=== PATIENT | female | born 1985 | race Caucasian/White ===

== ENCOUNTER 2020-06-10 21:49 | Emergency (ER) | payer OTHER ==
[~2020-06-10] VITALS: Ht 165.1 cm; Wt 109.8 kg
[2020-06-10] MEDS ORDERED: NS IV 1000 ML 1,000 ML IV STA (21:57)
[2020-06-10] MEDS ORDERED: KETOROLAC 60 MG/2 ML VIAL IV ONE (22:00)
[2020-06-10] MEDS ORDERED: ONDANSETRON 4 MG/2 ML (SDV) Z0FRAN IVP ONE (22:00)
--- NOTE | 2020-06-10 22:03 | ED Abdominal Pain ---
General Chief Complaint: Abdominal/GI Problems Stated Complaint: ABD PAIN Source of Information: Patient, RN/MD Exam Limitations: No Limitations History of Present Illness Date Seen by Provider: Jun 10, 2020 Time Seen by Provider: 21:50 Initial Comments This patient is a 35-year-old female presents to the emergency department complaining of epigastric discomfort. Patient states she feels nauseated but no vomiting. Patient states she started had her gallbladder out. Limited medical evaluation treat as needed Timing/Duration: 1 Day Severity/Quality: Moderate Location: Epigastric Radiation: No Radiation Activities at Onset: None Associated Symptoms: No Denies Symptoms, No Back Pain, No Chest Pain, No Diaphoresis, No Fever/Chills, No Fatigue, No Headache, No Heartburn; Nausea/Vomiting (nausea no vomiting); No Rash, No Shortness of Air, No Swelling/Mass in Abdomen, No Syncope, No Weakness, No Other Allergies and Home Medications Allergies Coded Allergies: No Known Drug Allergies (Unverified , 06/10/20) Patient Home Medication List Home Medication List Reviewed: Yes Review of Systems Review of Systems Constitutional: No no symptoms reported, No see HPI, No chills, No diaphoresis, No dizziness, No fever, No malaise, No weakness, No weight gain, No weight loss, No other EENTM: No No Symptoms Reported, No See HPI, No Blurred Vision, No Double Vision, No Eye Pain, No Eye Tearing, No Ear Drainage, No Ear Pain, No Mouth Pain, No Mouth Swelling, No Nose Congestion, No Nose Pain, No Throat Pain, No Throat Swelling, No Other Respiratory: Denies No Symptoms Reported, Denies See HPI, Denies Cough, Denies Orthopnea, Denies Shortness of Air, Denies SOA With Exertion, Denies SOA at Re st, Denies Stridor, Denies Wheezing, Denies Other Cardiovascular: Denies No Symptoms Reported, Denies See HPI, Denies Chest Pain, Denies Edema, Denies Irregular Heart Rate, Denies Lightheadedness, Denies Palpitations, Denies Syncope, Denies Other Gastrointestinal: Denies No Symptoms Reported; See HPI; Denies Abdomen Distended; Abdominal Pain; Denies Blood Streaked Stools, Denies Constipated, Denies Diarrhea, Denies Difficulty Swallowing; Nausea; Denies Poor Appetite, Denies Poor Fluid Intake, Denies Rectal Bleeding, Denies Vomiting, Denies Other Genitourinary: Denies No Symptoms Reported, Denies See HPI, Denies Burning, Denies Discharge, Denies Drainage, Denies Frequency, Denies Flank Pain, Denies Hematuria, Denies Incontinence, Denies Pain, Denies Urgency, Denies Other Musculoskeletal: No no symptoms reported, No see HPI, No back pain, No gout, No joint pain, No joint swelling, No muscle pain, No muscle stiffness, No muscle cramps, No muscle twitching, No muscle weakness, No neck pain, No other Skin: No no symptoms reported, No see HPI, No change in color, No change in hair/nails, No dryness, No hx of skin cancer, No lesions, No lumps, No pruritus, No rash, No other Psychiatric/Neurological: Denies No Symptoms Reported, Denies See HPI, Denies Anxiety, Denies Depressed, Denies Emotional Problems, Denies Headache, Denies Numbness, Denies Paresthesia, Denies Pre-Existing Deficit, Denies Seizure, Denies Tingling, Denies Tremors, Denies Weakness, Denies Other Endocrine: Denies No Symptoms Reported, Denies See HPI, Denies Excessive Sweating, Denies Flushing, Denies Intolerance to Cold, Denies Intolerance to Heat, Denies Increased Hunger, Denies Increased Thrist, Denies Increased Urine, Denies Unexplained Weight Gain, Denies Unexplaned Weight Loss, Denies Other All Other Systems Reviewed Negative Unless Noted: Yes Past Vajtbid-Ftegju-Gklfws Hx Patient Social History Recent Foreign Travel: No Contact w/Someone Who Travel: No Physical Exam Vital Signs Vital Signs - First Documented 06/10/20 22:00 Temp 36.1 Pulse 82 Resp 18 B/P (MAP) 161/105 (123) O2 Delivery Room Air Capillary Refill : Height/Weight/BMI Height: '" Weight: lbs. oz. kg; BMI Method: General Appearance: WD/WN, no apparent distress Respiratory: chest non-tender, lungs clear, normal breath sounds, no respiratory distress, no accessory muscle use Cardiovascular: normal peripheral pulses, regular rate, rhythm, no edema, no gallop, no JVD, no murmur Gastrointestinal: normal bowel sounds, non tender, soft, no organomegaly, no pulsatile mass Extremities: normal range of motion, non-tender, normal inspection, no pedal edema, no calf tenderness, normal capillary refill, pelvis stable Back: normal inspection, no CVA tenderness, no vertebral tenderness Pelvic: normal external exam, normal adnexa, no cerv. motion tender, no masses, discharge Progress/Results/Core Measures Results/Orders Lab Results Laboratory Tests Test 06/10/20 22:13 06/10/20 22:20 Range/Units Urine Color YELLOW Urine Clarity CLEAR Urine pH 7.5 5-9 Urine Specific [place] 1.010 L 1.016-1.022 Urine Protein NEGATIVE NEGATIVE Urine Glucose (UA) NEGATIVE NEGATIVE Urine Ketones NEGATIVE NEGATIVE Urine Nitrite NEGATIVE NEGATIVE Urine Bilirubin NEGATIVE NEGATIVE Urine Urobilinogen 0.2 < = 1.0 MG/DL Urine Leukocyte Esterase NEGATIVE NEGATIVE Urine RBC (Auto) NEGATIVE NEGATIVE Urine RBC NONE /HPF Urine WBC RARE /HPF Urine Squamous Epithelial Cells 0-2 /HPF Urine Crystals NONE /LPF Urine Bacteria TRACE /HPF Urine Casts NONE /LPF Urine Mucus NEGATIVE /LPF Urine Culture Indicated NO White Blood Count 12.4 H 4.3-11.0 10^3/uL Red Blood Count 4.98 4.35-5.85 10^6/uL Hemoglobin 15.4 11.5-16.0 G/DL Hematocrit 45 35-52 % Mean Corpuscular Volume 91 80-99 FL Mean Corpuscular Hemoglobin 31 25-34 PG Mean Corpuscular Hemoglobin Concent 34 32-36 G/DL Red Cell Distribution Width 12.5 10.0-14.5 % Platelet Count 296 130-400 10^3/uL Mean Platelet Volume 10.7 H 7.4-10.4 FL Neutrophils (%) (Auto) 48 42-75 % Lymphocytes (%) (Auto) 42 12-44 % Monocytes (%) (Auto) 5 0-12 % Eosinophils (%) (Auto) 4 0-10 % Basophils (%) (Auto) 1 0-10 % Neutrophils # (Auto) 6.0 1.8-7.8 X 10^3 Lymphocytes # (Auto) 5.2 H 1.0-4.0 X 10^3 Monocytes # (Auto) 0.6 0.0-1.0 X 10^3 Eosinophils # (Auto) 0.5 H 0.0-0.3 10^3/uL Basophils # (Auto) 0.1 0.0-0.1 10^3/uL Neutrophils % (Manual) 48 % Lymphocytes % (Manual) 39 % Monocytes % (Manual) 6 % Eosinophils % (Manual) 1 % Basophils % (Manual) 0 % Band Neutrophils 1 % Atypical Lymphocytes 4 % Sodium Level 140 135-145 MMOL/L Potassium Level 4.0 3.6-5.0 MMOL/L Chloride Level 104 98-107 MMOL/L Carbon Dioxide Level 24 21-32 MMOL/L Anion Gap 12 5-14 MMOL/L Blood Urea Nitrogen 10 7-18 MG/DL Creatinine 0.56 L 0.60-1.30 MG/DL Estimat Glomerular Filtration Rate > 60 BUN/Creatinine Ratio 18 Glucose Level 91 70-105 MG/DL Calcium Level 9.0 8.5-10.1 MG/DL Corrected Calcium 8.8 8.5-10.1 MG/DL Total Bilirubin 0.3 0.1-1.0 MG/DL Aspartate Amino Transf (AST/SGOT) 17 5-34 U/L Alanine Aminotransferase (ALT/SGPT) 26 0-55 U/L Alkaline Phosphatase 68 40-136 U/L Total Protein 7.0 6.4-8.2 GM/DL Albumin 4.2 3.2-4.5 GM/DL Lipase 36 8-78 U/L My Orders Orders - ABBI BALES MD Lipase (06/10/20 21:57) Ed Iv/Invasive Line Start (06/10/20 21:57) Comprehensive Metabolic Panel (06/10/20 21:57) Cbc With Automated Diff (06/10/20 21:57) Urinalysis (06/10/20 21:57) Abdomen Flat & Upright/Decub (06/10/20 21:57) Ketorolac Injection (Toradol Injection) (06/10/20 22:00) Ns Iv 1000 Ml (Sodium Chloride 0.9%) (06/10/20 21:57) Ondansetron Injection (Zofran Injectio (06/10/20 22:00) Urine Bedside (06/10/20 22:17) Manual Differential (06/10/20 22:20) Medications Given in ED Current Medications Medications Dose Ordered Sig/Lauro Route Start Time Stop Time Status Last Admin Dose Admin Ketorolac Tromethamine 15 mg ONCE ONCE IV 06/10/20 22:00 06/10/20 22:03 DC 06/10/20 22:23 15 MG Ondansetron HCl 4 mg ONCE ONCE IVP 06/10/20 22:00 06/10/20 22:03 DC 06/10/20 22:23 4 MG Vital Signs/I&O 06/10/20 22:00 Temp 36.1 Pulse 82 Resp 18 B/P (MAP) 161/105 (123) O2 Delivery Room Air Progress Progress Note : Time: 23:02 Progress Note Negative evaluation in the emergency department. X-rays do show constipation and nonspecific bowel gas. Encourage by mouth fluids. Advance diet slowly. Bentyl as needed for abdominal pain. Patient should use zgzp-tvj-tqbuyiz MiraLAX. May also Geremias Brown Cow by mixing 4 ounces of prune juice with 2 ounces of milk of magnesia. And 1 tablespoon salt better. Serve warm. Departure Impression Primary Impression: Abdominal pain Additional Impression: Constipation Disposition: HOME, SELF-CARE Condition: Stable Departure-Patient Inst. Decision time for Depature: 23:04 Referrals: NO,LOCAL PHYSICIAN (PCP) Primary Care Physician Patient Instructions: Constipation, Adult (DC), Severe Abdominal Pain, Adult (DC) Add. Discharge Instructions: Encourage by mouth fluids. Advance diet slowly. Bentyl as needed for abdominal pain. Patient should use mvwn-zpv-obbupej MiraLAX. May also Geremias Brown Cow by mixing 4 ounces of prune juice with 2 ounces of milk of magnesia. And 1 tablespoon salt better. Serve warm. All discharge instructions reviewed with patient and/or family. Voiced understanding. Scripts Ondansetron (Ondansetron Odt) 4 Mg Tab.rapdis 4 MG PO BID, #10 TAB 0 Refills Prov: ABBI BALES MD 06/10/20 Dicyclomine HCl (Dicyclomine HCl) 20 Mg Tablet 20 MG PO BID, #10 TAB 0 Refills Prov: ABBI BALES MD 06/10/20 ABBI BALES MD Jun 10, 2020 22:03
--- OUTSIDE RECORDS SUMMARY | 2020-06-10 22:25 | XMS REPORT ---
Author Author Kimmy CISSE Organization [facility] Address [address] [place] [address] Care Team Providers Care Livestock Trucker Name Role Phone TANNAMICKYA Unavailable PROBLEMS Unknown Problems ALLERGIES No Known Allergies ENCOUNTERS Encounter Location Date Diagnosis [facility] [address] [facility] [id number] [address] [place] [address] [id number] Aug, Caries K02.9 [facility] [address] [id number] [address] [place] [address] [id number] Jul, Caries K02.9 [facility] [address] [facility] [id number] [address] [place] [address] [id number] Jul, Caries K02.9 ; Dental examin ation Z01.20 ; Dental plaque K03.6 and Encounter for prophylactic administration of fluoride Z29.3 IMMUNIZATIONS No Known Immunizations SOCIAL HISTORY Never Assessed REASON FOR VISIT Establish Care PLAN OF CARE Activity Details Follow Up JUNAID Reason:Surgical #4/5 VITAL SIGNS Blood pressure systolic 158 mmHg 2018-08-23 Blood pressure diastolic 99 mmHg 2018-08-23 MEDICATIONS Unknown Medications RESULTS No Results PROCEDURES Procedure Date Ordered Result Body Site TOPICAL FLUORIDE VARNISH Aug 23, 2018 COMP ORAL EVALUATION - NEW/EST PT Aug 23, 2018 INTRAORL-PERIAPICAL 1 FILM [id number] Aug 23, 2018 PANORAMIC FILM SEE ALSO CODE [id number] Aug 23, 2018 BITEWINGS - FOUR FILMS Aug 23, 2018 PROPHYLAXIS - ADULT Aug 23, 2018 INTRAORL-PERIAPICAL EA ADD FILM Aug 23, 2018 INTRAORL-PERIAPICAL EA ADD FILM Aug 23, 2018 INTRAORL-PERIAPICAL EA ADD FILM Aug 23, 2018 INTRAORL-PERIAPICAL EA ADD FILM Aug 23, 2018 INSTRUCTIONS MEDICATIONS ADMINISTERED No Known Medications MEDICAL (GENERAL) HISTORY Type Description Date Surgical History Gall Bladder Removed 09/2016 Surgical History [place] teeth 2000
--- OUTSIDE RECORDS SUMMARY | 2020-06-10 22:25 | XMS REPORT | Continuity of Care Document ---
Author Organization Unknown Address Unknown Phone Unavailable Allergies Active Description Code Type Severity Reaction Onset Reported/Identified Relationship to Patient Clinical Status Yes No Known Drug Allergies [id number] Drug Allergy Unknown N/A 06/10/2020 Medications There is no data. Problems There is no data. Procedures There is no data. Results There is no data. Encounters ACCT No. Visit Date/Time Discharge Status Pt. Type Provider Facility Loc./Unit Complaint [id number] 10/31/2019 17:20:00 10/31/2019 23:59: 59 CLS Outpatient [facility] [id number] 06/10/2020 21:51:[address] Emergency AMAIR[facility]RAEL, ABBI Garcia [facility] ER FS ABD PAIN
--- OUTSIDE RECORDS SUMMARY | 2020-06-10 22:25 | XMS REPORT ---
Author Author Kimmy BERNABE Organization [facility] Address Unknown Care Team Providers Care Green Tire Inspector Name Role Phone JANENE BERNABE Unavailable PROBLEMS Unknown Problems ALLERGIES No Known Allergies ENCOUNTERS Encounter Location Date Diagnosis [facility] [id number] [place] [address] [id number] Aug, Caries K02.9 [facility] [address] [place] [id number] [address] [place] [id number] Jul, Caries K02.9 [facility] [address] [place] [id number] [place] [address] [id number] Jul, Caries K02.9 ; Dental examin ation Z01.20 ; Dental plaque K03.6 and Encounter for prophylactic administration of fluoride Z29.3 IMMUNIZATIONS No Known Immunizations SOCIAL HISTORY Never Assessed REASON FOR VISIT te 4,5 w/ Cindy PLAN OF CARE Activity Details Follow Up prn Reason:Restorative VITAL SIGNS Blood pressure systolic 150 mmHg 2018-08-23 Blood pressure diastolic 94 mmHg 2018-08-23 MEDICATIONS Unknown Medications RESULTS No Results PROCEDURES Procedure Date Ordered Result Body Site EXTRAC ERUPTED TOOTH/EXPOSED ROOT Aug 23, 2018 EXTRAC ERUPTED TOOTH/EXPOSED ROOT Aug 23, 2018 INSTRUCTIONS MEDICATIONS ADMINISTERED No Known Medications MEDICAL (GENERAL) HISTORY Type Description Date Surgical History Gall Bladder Removed 09/2016 Surgical History [place] teeth 2001
[2020-06-10 22:29] LABS: BILIRUBIN,URINE NEGATIVE (NEGATIVE); CLARITY,URINE CLEAR; COLOR,URINE YELLOW; GLUCOSE, URINE (UA) NEGATIVE (NEGATIVE); KETONES,URINE NEGATIVE (NEGATIVE); LEUKOCYTE ESTERASE ,URINE NEGATIVE (NEGATIVE); NITRITE,URINE NEGATIVE (NEGATIVE); PH,URINE 7.5 (5-9); PROTEIN,URINE NEGATIVE (NEGATIVE)
[2020-06-10 22:30] LABS: BACTERIA,URINE TRACE /HPF; SQUAMOUS EPITHELIAL CELL,UR 0-2 /HPF; WBC,URINE RARE /HPF
[2020-06-10 22:50] LABS: HEMATOCRIT 45 % (35-52); HEMOGLOBIN 15.4 G/DL (11.5-16.0); MEAN CORPUSCULAR HEMOGLOBIN 31 PG (25-34); MEAN CORPUSCULAR HGB CONC 34 G/DL (32-36); MEAN CORPUSCULAR VOLUME 91 FL (80-99); PLATELET COUNT 296 10^3/uL (130-400); RED CELL DISTRIBUTION WIDTH 12.5 % (10.0-14.5); WHITE BLOOD COUNT 12.4 10^3/uL (4.3-11.0)
[2020-06-10 22:51] LABS: BASOPHILS % (AUTO) 1 % (0-10); EOSINOPHILS % (AUTO) 4 % (0-10); LYMPHOCYTES # (AUTO) 5.2 X 10^3 (1.0-4.0); LYMPHOCYTES % (AUTO) 42 % (12-44); MEAN PLATELET VOLUME 10.7 FL (7.4-10.4); MONOCYTES % (AUTO) 5 % (0-12); NEUTROPHILS % (AUTO) 48 % (42-75)
[2020-06-10 22:52] LABS: BAND NEUTROPHILS 1 %; BASOPHILS # (AUTO) 0.1 10^3/uL (0.0-0.1); BASOPHILS % (MANUAL) 0 %; EOSINOPHILS # (AUTO) 0.5 10^3/uL (0.0-0.3); EOSINOPHILS % (MANUAL) 1 %; LYMPHOCYTES % (MANUAL) 39 %; MONOCYTES # (AUTO) 0.6 X 10^3 (0.0-1.0); MONOCYTES % (MANUAL) 6 %; NEUTROPHILS % (MANUAL) 48 %
[2020-06-10 22:53] LABS: ATYPICAL LYMPHOCYTES 4 %
[2020-06-10 22:56] LABS: ALANINE AMINOTRANSFERASE 26 U/L (0-55); ALBUMIN 4.2 GM/DL (3.2-4.5); ALKALINE PHOSPHATASE 68 U/L (40-136); BILIRUBIN,TOTAL 0.3 MG/DL (0.1-1.0); BUN/CREATININE RATIO 18; CARBON DIOXIDE 24 MMOL/L (21-32); CHLORIDE 104 MMOL/L (98-107); CREATININE SERUM 0.56 MG/DL (0.60-1.30); GFR ESTIMATED > 60; GLUCOSE 91 MG/DL (70-105); LIPASE 36 U/L (8-78); SODIUM 140 MMOL/L (135-145)
[2020-06-10] MEDS ORDERED: DICY20TA10 PO (23:05)
[2020-06-10] MEDS ORDERED: ONDA4TAB11 PO (23:05)
[2020-06-10 23:06] VITALS: BP 148/88
--- NOTE | 2020-06-11 06:52 | Diagnostic Imaging Report ---
Indication: Upper abdominal pain. Comparison: None. Findings: KUB and upright views demonstrate mild constipation without obstruction or ileus or free air. Cholecystectomy clips are present. Osseous structures are unremarkable. Impression: Mild constipation. Dictated by: Dictated on workstation # [id number]
== END 2020-06-10 23:08 | disposition home or self-care (01) ==
LOC: EDUNIT# 21:49 → ER FS 21:51
DX: K59.00 Constipation, unspecified (principal)
CPT/HCPCS: 36415; 74019; 80053; 81000; 83690; 84703; 85007; 85027